=== PATIENT | male | born 2000 | race Two or more races ===

== ENCOUNTER 2019-08-28 11:50 | Emergency (ER) | payer SELFPAY ==
[~2019-08-28] VITALS: Ht 167.6 cm; Wt 59.0 kg
--- NOTE | 2019-08-28 11:55 | NUR ---
BRIAN FROM LIBRARY, HAD A PANIC ATTACK. PATIENT A/OX4, BREATHING EVEN AND UNLABORED, VITALS STABLE. NO DISTRESS NOTED.
[2019-08-28 12:27] VITALS: BP 119/86
--- NOTE | 2019-08-28 12:28 | NUR ---
Patient does not wish to proceed with medical care recommended by Dr. Mayfield. Patient given information related to possible complications, up to and including , which could occur as a result of leaving the hospital at this time. Patient verbalizes understanding of risks involved due to leaving against medical advice. Patient has signed AMA form.
== END 2019-08-28 12:31 | disposition left against medical advice (07) ==
LOC: ER 11:50
DX: F41.9 Anxiety disorder, unspecified (principal); Z60.2 Problems related to living alone

== ENCOUNTER 2021-06-13 01:58 | Emergency (ER) | payer MEDICAID ==
[~2021-06-13] VITALS: Ht 162.6 cm; Wt 56.7 kg
--- NOTE | 2021-06-13 02:05 | NUR ---
pt biblapd c/o anxiety and paranoia. Pt aaox4 breathing evenly and unlabored. pt changed into gown and belongings placed in locker. [employer] at bedside. Pt attached to monitor and pox. Pt given blanket and call light within reach
[2021-06-13 02:23] LABS: BILIRUBIN,URINE SMALL (NEGATIVE); COLOR,URINE YELLOW (YELLOW); LEUKOCYTE ESTERASE ,URINE Negative (NEGATIVE); NITRITE, URINE Negative (NEGATIVE); PROTEIN,URINE Negative (NEGATIVE); UGLUCOSE Negative (NEGATIVE)
--- NOTE | 2021-06-13 02:23 | NUR ---
lab at bedside.
--- NOTE | 2021-06-13 02:24 | NUR ---
urine sent to lab
[2021-06-13 02:31] LABS: BASOPHILS % (AUTO) 0.2 % (0.0-2.0); EOSINOPHILS % (AUTO) 0.3 % (0.0-6.0); HEMATOCRIT 42 % (39-51); HEMOGLOBIN 14.8 g/dL (13.5-17.5); LYMPHOCYTES # (AUTO) 1.4 K/uL (0.8-4.8); LYMPHOCYTES % (AUTO) 19.1 % (20.0-44.0); MEAN CORPUSCULAR HGB CONC 35 g/dl (31.0-36.0); MEAN CORPUSCULAR VOLUME 94 fL (80-96); MONOCYTES # (AUTO) 0.5 K/uL (0.1-1.30); MONOCYTES % (AUTO) 6.7 % (2.0-12.0); NEUTROPHILS # (AUTO) 5.3 K/uL (1.8-8.9); NEUTROPHILS % (AUTO) 73.7 % (43.0-81.0); PLATELET COUNT (AUTO) 225 K/uL (150-450); WHITE BLOOD COUNT (AUTO) 7.3 K/uL (4.3-11.0)
[2021-06-13 02:34] LABS: CALCIUM, SERUM 8.5 mg/dL (8.5-10.1); CARBON DIOXIDE 21 mmol/L (21-32); CHLORIDE 107 mmol/L (98-107); CREATININE 0.8 mg/dL (0.6-1.3); GLUCOSE 129 mg/dL (74-106); POTASSIUM 3.1 mmol/L (3.5-5.1); SODIUM SERUM 140 mmol/L (136-145); UREA NITROGEN, BLOOD 11 mg/dL (7-18)
[2021-06-13 02:47] LABS: ALANINE AMINOTRANSFERASE 28 U/L (12-78); ALBUMIN 4.3 g/dL (3.4-5.0); ALCOHOL, BLOOD < 3 mg/dL (0-0); ALKALINE PHOSPHATASE 78 U/L (46-116); ASPARTATE AMINOTRANSFERASE 27 U/L (15-37); BILIRUBIN,DIRECT 0.1 mg/dL (0.0-0.2); BILIRUBIN,TOTAL 0.6 mg/dL (0.2-1.0); TOTAL PROTEIN, SERUM 7.3 g/dL (6.4-8.2)
[2021-06-13 02:48] LABS: ACETAMINOPHEN 0 ug/ml (10-30)
[2021-06-13] MEDS ORDERED: POTASSIUM CHLORIDE 20 MEQ TAB.PRT.SR PO ONE ×2 (03:30→04:05)
[2021-06-13 03:35] LABS: BACTERIA,URINE None seen /HPF (None Seen); SQUAMOUS EPITHELIAL CELL,UR Rare /HPF (None Seen)
--- NOTE | 2021-06-13 03:45 | NUR ---
Pt continues to be paranoid about family. Pt states " they are being manipulated. Im getting a vibe that they are. I need to protect them."
--- NOTE | 2021-06-13 04:25 | NUR ---
SS Note: 3 PM: Pt.'s mother, Kaycee [phone] provided pt.'s IRS identification number : [id number]. SHAKIRA relayed this information to admitting to apply for presumptive Medi-Murali. 4PM: SHAKIRA faxed clinicals to the following psychiatric hospials pending presumptive Medi-Murali : [facility] FAX: [phone] TEL:[phone] [facility] FAX: [phone] TEL: [phone] [facility] tel: [phone] [facility] FAX: [phone] [facility] FAX: [phone] TEL: [phone] [facility] 4757
--- NOTE | 2021-06-13 05:15 | NUR ---
pt sitting quietly, vss
[2021-06-13] MEDS ORDERED: OLANZAPINE 5 MG TABLET ONE (05:48)
[2021-06-13] MEDS ORDERED: OLANZAPINE 5 MG TABLET PO ONE (06:00)
--- NOTE | 2021-06-13 06:10 | NUR ---
CALLED VICKIE SALTERW LEFT MSG TO CALL US BACK.
--- NOTE | 2021-06-13 07:21 | NUR ---
COVID RESULT NEGATIVE
--- NOTE | 2021-06-13 07:50 | NUR ---
THE PATIENT IS SLEEPING IN BED. RESPIRATION REGULAR AND UNLABORED. IN NO APPARENT DISTRESS. WILL CONTINUE TO MONITOR THE PATIENT.
--- NOTE | 2021-06-13 08:46 | NUR ---
SS Note: Patient is on a 5150 hold and needs to be placed at a psychiatric facility for Treatment. SW called admitting to possibly get presumptive Medi-Murali for pt. They stated financial servies will screen patient.SW will follow up with faxing clinicals for placement at a later time.
--- NOTE | 2021-06-13 11:50 | NUR ---
PT ASLEEP, EASILY AWAKEN BY VERBAL STIMULI & WILL GO BACK TO SLEEP. DENIES CP, SOB, DIZZINESS, N/V AT THIS TIME. WILL CONT TO MONITOR.
--- NOTE | 2021-06-13 13:52 | NUR ---
SS Note: SHAKIRA called pt.'s mother, Kaycee [phone] to gatehr pt.'s SS Number. Family stated pt. does not have SS number but can provide identification number for insurance purposes at 3 p when they arrive at home. SHAKIRA willf ollow up and call Kaycee at 3 pm. SW to fax clinicals for placement once insurance infromation is updated.
--- NOTE | 2021-06-13 14:31 | NUR ---
PT AAOX3, VSS. PT STILL FEELING PARANOID " MY FAMILY ARE NOT SAFE, SOMEONE'S MANIPULATING THEM ". DENIES SI, HI, CP, SOB, DIZZINESS, N/V AT THIS TIME. WILL CONT TO MONITOR, SITTER AT BS.
--- NOTE | 2021-06-13 16:25 | NUR ---
SS Note: 3 PM: Pt.'s mother, Kaycee [phone] provided pt.'s IRS identification number : [id number]. SHAKIRA relayed this information to admitting to apply for presumptive Medi-Murali. 4PM: SHAKIRA faxed clinicals to the following psychiatric hospials pending presumptive Medi-Murali : [facility] FAX: [phone] TEL:[phone] [facility] FAX: [phone] TEL: [phone] [facility] tel: [phone] [facility] FAX: [phone] [facility] FAX: [phone] TEL: [phone] [facility] 1558
--- NOTE | 2021-06-13 17:18 | NUR ---
Patient is resting comfortably in bed with eyes closed. Easily aroused. VSS
--- NOTE | 2021-06-13 19:04 | NUR ---
CALLED [facility] [phone] [facility] [phone] [place] INTAKE [phone] [facility] TO [phone]
--- NOTE | 2021-06-13 20:42 | NUR ---
PT AWAKE IN BED, VSS.
--- NOTE | 2021-06-14 01:15 | NUR ---
ASLEEP, VSS. REMAINS ON MONITOR, AND PULSE OX.
--- NOTE | 2021-06-14 05:30 | NUR ---
PT RESTING COMFORTABLY. VSS.
[2021-06-14] MEDS ORDERED: OLAN5TAB3 PO (08:46)
[2021-06-14] MEDS ORDERED: OLANZAPINE 5 MG TABLET PO ONE ×2 (09:00→12:00)
--- NOTE | 2021-06-14 09:00 | NUR ---
SPOKE TO RF DESIGN ENGINEER MICHAEL MOLINA. HE SAID HE WILL COME TO ER TO BREAK THE HOLD. NO ETA GIVEN.
[2021-06-14] MEDS ORDERED: OLANZAPINE 5 MG TABLET ONE ×2 (09:10→11:54)
--- NOTE | 2021-06-14 09:14 | NUR ---
medicated as ordered. vitals updated.
--- NOTE | 2021-06-14 11:59 | NUR ---
Per Dr Tran ok to given 2nd dose of Zyprexa 5 mg po. The medication administered.
--- NOTE | 2021-06-14 12:00 | NUR ---
Patient discharged to home in stable condition. Written and verbal after care instructions given. Patient verbalizes understanding of instruction. The patient is picked up by family.
[2021-06-14 12:01] VITALS: BP 116/72
== END 2021-06-14 12:01 | disposition home or self-care (01) ==
LOC: ER 01:58
DX: F22 Delusional disorders (principal); F31.9 Bipolar disorder, unspecified; F41.9 Anxiety disorder, unspecified; Z20.822 Contact with and (suspected) exposure to COVID-19; Z82.49 Family history of ischemic heart disease and other diseases of the circulatory system
CPT/HCPCS: 36415; 80048; 80076; 80143; 80307; 80320; 81001; 85025; 87426; 99285; C9803; G0480